=== PATIENT | male | born 1950 | race Caucasian/White ===

== ENCOUNTER 2020-01-09 08:28 | Day surgery (SDC) | payer MEDICARE, OTHER ==
[2020-01-08 12:18] VITALS: BMI 35.4
[2020-01-09 08:53] LABS: #Basophils 0.1 thou/uL (0.0-0.2); #Eosinphils 0.6 thou/uL (0.0-0.7); #Lymphocytes 2.2 thou/uL (1.20-3.40); #Monocytes 1.2 thou/uL (0.11-0.59); #Neutrophils 6.3 thou/uL (1.40-6.50); %Eosinophils 5.4 % (0.0-10.0); %Lymphocytes 21.4 % (21.0-51.0); %Monocytes 11.5 % (0.0-10.0); %Neutrophils 60.8 % (42.0-75.0); Hemoglobin 14.2 g/dL (14.0-18.0); Mean Corpuscular HGB CONC 32.4 g/dL (32.0-36.0); Mean Corpuscular Volume 86.5 fL (78.0-98.0); Mean Platelet Volume 6.4 fL (7.4-10.4); Platelet Count 291 thou/uL (130-400); RBC Distribution Width 13.5 % (11.5-14.5); Red Blood Cell (RBC) Count 5.07 mill/uL (4.70-6.10); White Blood Cell (WBC) Count 10.3 thou/uL (4.8-10.8)
[2020-01-09 08:56] LABS: PTT 32.3 sec (22.9-36.1); Prothrombin Time 12.8 sec (12.0-14.7)
[2020-01-09 09:29] VITALS: BP 116/74; TEMP 98.3
--- NOTE | 2020-01-09 12:14 | CT ---
PROCEDURE: CT-guided percutaneous biopsy of a right paraspinous mass PROVIDED CLINICAL HISTORY: Patient with large left renal mass and evidence of metastatic disease including intramuscular soft ti ssue masses. Biopsy was requested. COMPARISON: CT abdomen and pelvis on 12/22/2019 TECHNIQUE: The procedure including the risks and complications were explained to the patient, and informed conse nt was obtained. Patient was placed on the CT scan table in the prone position. Limited noncontrasted CT scan was obtained through the left lower paraspinous mass with grid localizer in michael ce. An area was marked and then meticulously prepped and draped in usual sterile fashion. Skin and subcutaneous tissues were infiltrated with buffered 1% lidocaine for local anesthesia at the intended puncture site. A small skin incision was made. A 17-gauge guide needle was advanced followed by noncontrasted CT images. Tip of the needle was placed at the peripheral margin of the rig ht paraspinous mass. A total of two 18-gauge core needle biopsy specimens were obtained utilizing coaxial technique. Patho logy was available for evaluation of the specimen. Initial touch prep demonstrated malignant cells. Needle was removed, and hemostasis was achieved with direct pressure. Dry sterile dressing was placed . Patient was transported to radiology nurses holding area for further monitoring prior to discharge. IMPRESSION: Technically successful CT-guided percutaneous biopsy of right paraspinal mass.
--- NOTE | 2020-01-10 17:13 | CT ---
PROCEDURE: CT-guided percutaneous biopsy of a right paraspinous mass PROVIDED CLINICAL HISTORY: Patient with large left renal mass and evidence of metastatic disease including intramuscular soft ti ssue masses. Biopsy was requested. COMPARISON: CT abdomen and pelvis on 12/22/2019 TECHNIQUE: The procedure including the risks and complications were explained to the patient, and informed conse nt was obtained. Patient was placed on the CT scan table in the prone position. Limited noncontrasted CT scan was obtained through the left lower paraspinous mass with grid localizer in michael ce. An area was marked and then meticulously prepped and draped in usual sterile fashion. Skin and subcutaneous tissues were infiltrated with buffered 1% lidocaine for local anesthesia at the intended puncture site. A small skin incision was made. A 17-gauge guide needle was advanced followed by noncontrasted CT images. Tip of the needle was placed at the peripheral margin of the rig ht paraspinous mass. A total of two 18-gauge core needle biopsy specimens were obtained utilizing coaxial technique. Patho logy was available for evaluation of the specimen. Initial touch prep demonstrated malignant cells. Needle was removed, and hemostasis was achieved with direct pressure. Dry sterile dressing was placed . Patient was transported to radiology nurses holding area for further monitoring prior to discharge. IMPRESSION: Technically successful CT-guided percutaneous biopsy of right paraspinal mass. Transcribed Date/Time: 01/10/2020 5:13 PM
== END 2020-01-09 12:00 | disposition home or self-care (01) ==
LOC: CT 08:28
PROVIDERS: ATTEND Internal Medicine Hematology & Oncology
PROC: 0KBF3ZX Excision of Right Trunk Muscle, Percutaneous Approach, Diagnostic (ICD-10-PCS; principal; 2020-01-09)
DX: C64.2 Malignant neoplasm of left kidney, except renal pelvis (principal); C79.89 Secondary malignant neoplasm of other specified sites; C78.01 Secondary malignant neoplasm of right lung; C78.02 Secondary malignant neoplasm of left lung; E11.9 Type 2 diabetes mellitus without complications; I10 Essential (primary) hypertension; E78.00 Pure hypercholesterolemia, unspecified; Z87.891 Personal history of nicotine dependence; Z79.82 Long term (current) use of aspirin; Z79.84 Long term (current) use of oral hypoglycemic drugs; Z79.899 Other long term (current) drug therapy; Z88.2 Allergy status to sulfonamides
CPT/HCPCS: 20225; 36415; 72131; 77002; 85025; 85610; 85730; 88305; 88333; 88341; 88342

== ENCOUNTER 2020-01-10 09:28 | Outpatient (CLI) | payer MEDICARE ==
[~2020-01-10 09:28] MED LIST: Fentanyl 100 MCG/2 ML VIAL ONE; Midazolam HCl 2 mg/2 ml Vial ONE; Sodium Bicarbonate 2.5 MEQ/5 ML VIAL ONE
--- NOTE | 2020-01-10 12:11 | MRI ---
Exam: Brain MRI with and without contrast HISTORY: Renal cancer with lung metastases. Evaluate for intracranial metastases. COMPARISON: 06/22/2012 FINDINGS: Gradient echo sequence: No hemorrhage Calvarium: Appropriate T1 marrow signal intensity Midline brain parenchyma: Unremarkable Cerebrum:No parenchymal mass, mass effect or midline shift. Brain volume is age-appropriate. Cortical hicks-white white matter differentiation is preserved. Minimal T2 and FLAIR white matter hyperintensities due to chronic small vessel ischemic change Cerebellum: There is FLAIR hyperintensity with effacement of the cerebellar folia involving the left cerebellar hemisphere. 1.3 x 1.8 cm enhancing mass. No additional abnormal enhancing masses in the posterior fossa. Ventricles: No evidence of hydrocephalus. Sinuses and mastoid air cells: Adequate aeration Diffusion: Central arterial flow is maintained. Absent restricted diffusion. Postcontrast images: No pathologic enhancement of the cerebrum. IMPRESSION: 1. Solitary metastatic focus in the left cerebellar hemisphere is suspected. There is associated vaso genic edema and enhancing lesion. Results study conveyed to Dr. Urias via [employer] 01/10/2020 at 12:08 PM Code CR
--- NOTE | 2020-01-10 14:52 | NM ---
WHOLE BODY BONE SCAN: 01/10/20 HISTORY: Malignant neoplasm of left kidney except renal pelvis, back pain. FINDINGS: Correlation is made with the CT scan of the chest dated 07/05/[address] abdomen and pelvis dated . Mild uptake in the lumbar spine is consistent with degenerative changes noted on the CT scan. Increa sed uptake in the shoulders and feet are consistent with degenerative changes as well. There is photo penia secondary to a mass in the left kidney is not seen. Tracer excretion by the kidneys are otherwi se within normal limits. No other abnormal areas of tracer localization is seen in the skeleton to cope ggest metastatic disease. IMPRESSION: No scintigraphic evidence of osseous metastatic disease. POS: AH
[2020-01-10] MEDS ORDERED: Magnevist 469MG/ML 20 ML VIAL ONE (16:29)
== END 2020-01-10 09:29 | disposition home or self-care (01) ==
LOC: MRI 09:28
PROVIDERS: ATTEND Internal Medicine Hematology & Oncology
DX: C64.2 Malignant neoplasm of left kidney, except renal pelvis (principal); C78.01 Secondary malignant neoplasm of right lung; G93.6 Cerebral edema; G93.9 Disorder of brain, unspecified
CPT/HCPCS: 70553; 78306; A9503; A9579; J2250; J3010